=== PATIENT | female | born 1980 | race Caucasian/White ===

== ENCOUNTER → 2016-09-30 | Outpatient (CLI) | payer OTHER ==
[~2016-09-30] MED LIST: ACET-1256 PO; AMPH10TA2 PO; FLUC100T4 PO; IBUP-103 PO; METR500T PO; PRENTAB26 PO; VALA500T60 PO
[2016-09-30 10:49] LABS: THYROID STIMULATING HORMONE 2.02 uIu/ml (0.300-4.500)
== END | disposition home or self-care (01) ==
LOC: C.LAB 09:33
PROVIDERS: ATTEND Family Medicine
DX: E66.01 Morbid (severe) obesity due to excess calories (principal)

== ENCOUNTER → 2016-10-08 | Outpatient (CLI) | payer OTHER ==
--- NOTE | 2016-10-08 07:46 | DIAGNOSTIC IMAGING REPORT ---
LEFT FOOT ULTRASOUND CLINICAL HISTORY: Left foot palpable abnormality. COMPARISON STUDY: None. FINDINGS: Within the dorsal/lateral aspect of the left foot there is a subcutaneous tubular shaped slightly complex hypoechoic structure. This measures 2.9 x 0.3 cm and is located within the subcutaneous soft tissues. There is no associated color flow within this lesion. IMPRESSION: A 2.9 x 0.3 cm slightly complex tubular structure within the subcutaneous soft tissues of the dorsal/lateral aspect of the left foot. This appears to represent a thrombosed superficial vein. However, a cystic lesion could also have a similar appearance. Clinical follow-up is recommended to ensure resolution. Electronically signed by: Asad Manrique M.D. 10/08/2016 7:44 AM Dictated Date/Time: 10/08/2016 7:42 AM
== END | disposition home or self-care (01) ==
LOC: C.ULTR 07:06
PROVIDERS: ATTEND Physician Assistant
DX: R22.42 Localized swelling, mass and lump, left lower limb (principal)

== ENCOUNTER → 2017-01-07 | Outpatient (CLI) | payer OTHER | END | disposition home or self-care (01) | LOC: C.PAPS 13:21 | PROVIDERS: ATTEND Obstetrics & Gynecology | DX: Z01.419 Encounter for gynecological examination (general) (routine) without abnormal findings (principal) ==

== ENCOUNTER → 2017-01-07 | Outpatient (CLI) | payer OTHER | END | disposition home or self-care (01) | LOC: C.LAB1850 11:45 | PROVIDERS: ATTEND Obstetrics & Gynecology | DX: Z11.3 Encounter for screening for infections with a predominantly sexual mode of transmission (principal) ==

== ENCOUNTER → 2017-01-07 | Outpatient (CLI) | payer OTHER ==
[2017-01-11 13:07] LABS: CHLAMYDIA TRACH RNA*** NOT DETECTED (NOT DETECTED); GC (NEIS GONORRHOEAE)RNA** NOT DETECTED (NOT DETECTED)
== END | disposition home or self-care (01) ==
LOC: C.LABSPEC 13:34
PROVIDERS: ATTEND Obstetrics & Gynecology
DX: Z11.3 Encounter for screening for infections with a predominantly sexual mode of transmission (principal)

== ENCOUNTER → 2017-02-27 | Outpatient (CLI) | payer OTHER | END | disposition home or self-care (01) | LOC: C.PATHSPEC 15:45 | PROVIDERS: ATTEND Obstetrics & Gynecology | DX: R87.810 Cervical high risk human papillomavirus (HPV) DNA test positive (principal); N87.1 Moderate cervical dysplasia ==

== ENCOUNTER → 2017-05-14 | Outpatient (CLI) | payer OTHER | END | disposition home or self-care (01) | LOC: C.PATHSPEC 17:23 | PROVIDERS: ATTEND Obstetrics & Gynecology | DX: R87.810 Cervical high risk human papillomavirus (HPV) DNA test positive (principal); D06.0 Carcinoma in situ of endocervix ==

== ENCOUNTER → 2017-06-30 | Outpatient (CLI) | payer OTHER ==
[~2017-06-30] MED LIST changes: +ESOM20CA PO; +NAPR1TAB9 PO; +OXYC-57 PO
--- NOTE | 2017-06-30 09:06 | DIAGNOSTIC IMAGING REPORT ---
R LOWER EXT JOINT WITHOUT CLINICAL HISTORY: 37 years-old Female presenting with RT KNEE PAIN. TECHNIQUE: Multisequence, multiplanar MR imaging of the right knee was performed without the use of intravenous contrast. IV contrast: None. COMPARISON: 02/01/2016. FINDINGS: Localizer images: Unremarkable. Bony edema and cystic change noted in the tibial plateau anterior and subjacent to the insertion of the posterior cruciate ligament, slightly progressed from prior exam. No other sites of bony edema or cystic change. Articular cartilage fraying and irregularity in the mid to posterior weightbearing surface of the lateral femoral condyle. Minimal irregularity of mid weightbearing articular cartilage of the lateral tibial plateau. Irregularity of the anterior weightbearing articular cartilage of the medial femoral condyle. Minimal fissuring and increased signal intensity of the median prominence articular cartilage of the patella. Trochlear cartilage grossly preserved. Focus of susceptibility artifact along the anterior weightbearing portion of the medial femoral condyle could suggest postsurgical change. Medial meniscus intact. Lateral meniscus demonstrates increased signal intensity and blunting of the anterior horn with a horizontally oriented increased signal intensity in the body, which becomes vertically longitudinally oriented in the posterior horn. This is consistent with a complex tear and has advanced since the prior exam. Meniscocapsular ligaments of the lateral meniscus may not be intact. Medial meniscocapsular ligaments intact. Quadriceps and patellar tendons intact. Anterior and posterior cruciate ligaments intact. Medial collateral ligament intact. Lateral collateral ligament complex demonstrates increased signal intensity of the fibular collateral ligament with intact fibers. Biceps femoris tendon and iliotibial band intact. Slight increased signal intensity of the insertional fibers of the popliteus tendon suggests tendinosis or partial tear. Small knee joint effusion. No popliteal cyst. Normal muscle bulk and muscle signal intensity. Infrapatellar subcutaneous edema and laminar fluid. IMPRESSION: 1. Bony edema and cystic change subjacent to the insertion of the posterior cruciate ligament could suggest prior injury and degeneration though the ligament remains intact. 2. Complex tear of the lateral meniscus, which has progressed since the prior exam now involving the anterior horn, body, and posterior horn. Lateral meniscal capsular ligaments or possibly disrupted. 3. Degenerative change of the fibular collateral ligament. Degenerative change versus partial tear of the popliteus tendon at the insertional fibers. 4. Multifocal articular cartilage injury as above affecting the lateral compartments of the greatest degree. 5. Superficial infrapatellar bursitis. Electronically signed by: Dejan Rios M.D. 06/30/2017 9:05 AM Dictated Date/Time: 06/30/2017 8:55 AM
== END | disposition home or self-care (01) ==
LOC: C.MRI 07:33
PROVIDERS: ATTEND Orthopaedic Surgery
DX: S83.281A Other tear of lateral meniscus, current injury, right knee, initial encounter (principal); M70.51 Other bursitis of knee, right knee; X58.XXXA Exposure to other specified factors, initial encounter

== ENCOUNTER 2017-08-21 07:30 | Day surgery (SDC) | payer OTHER ==
--- NOTE | 2017-07-30 11:19 | HISTORY & PHYSICAL EXAMINATION ---
DATE OF ADMISSION: 08/21/2017 SUBJECTIVE CHIEF COMPLAINT: Right knee pain. HISTORY OF PRESENT ILLNESS: The patient is a 37-year-old female that presented with right knee pain. She states that the symptoms have occurred over a period of time. She denies any type of injury. She describes the pain as aching and sharp and moderate. She previously had arthroscopic surgery on her right knee for the meniscus tear. PAST MEDICAL HISTORY: Significant for GERD. PAST SURGICAL HISTORY: She had a right knee PLM, cholecystectomy, LEEP procedure and a tubal ligation. SOCIAL HISTORY: She denies alcohol use. She denies smoking or tobacco use. She denies IV or illegal drug use. FAMILY HISTORY: Noncontributory. ALLERGIES: ADHESIVES, WHICH SHE GETS BLISTERS. MEDICATIONS: Adderall 15 mg daily and 10 mg daily and Nexium. REVIEW OF SYSTEMS: She denies headaches, fevers, chills, double vision, blurry vision, sore throat, cough, chest pain, nausea, vomiting, diarrhea, constipation, numbness, tingling, tired, urinary difficulties, thoughts to harm herself or harm others or depression. She is positive for right knee joint pain. OBJECTIVE: GENERAL APPEARANCE: The patient is a 37-year-old female sitting in no acute distress. She is well-dressed, well-nourished. VITAL SIGNS: She is 5 feet 6 inches tall, 268 pounds. HEENT: Normocephalic, atraumatic. Extraocular movements are intact. Mucosa was moist. No septal deviation. NECK: Supple with no lymphadenopathy, no thyromegaly. HEART: Regular rate and rhythm with no murmurs or gallops. LUNGS: Clear to auscultation. No wheezing or rhonchi. ABDOMEN: Soft, nontender, nondistended. Normal bowel sounds, no hepatosplenomegaly. EXTREMITIES: Paying particular attention to the right knee, she has lateral joint line tenderness, positive Zurdo's. Her ligaments are intact. Strength and range of motion are within normal limits. NEUROLOGIC: Cranial nerves II-XII were intact. Pulses were compared bilaterally and were equal. IMAGING: MRI of her right knee demonstrated tear of the posterior horn of the lateral meniscus. IMPRESSION: Right knee lateral meniscus tear. PLAN: The patient is scheduled for a right knee partial lateral meniscectomy. Risks and benefits, and alternatives to surgery were discussed and included but not limited to infection, DVT, pain, stiffness, need for revision surgery, failure to relieve her symptoms, progression of arthritis, damage to blood vessels, damage to nerves, and risks of anesthesia and were all discussed with the patient and she wishes to proceed. All questions were answered to her satisfaction. No DVT prophylaxis is needed and she will be discharged home with self-care. CAMILLA
[2017-07-31 15:50] VITALS: BMI 42.0
[~2017-08-21] VITALS: Ht 167.6 cm; Wt 118.2 kg
[~2017-08-21 07:30] MED LIST changes: +CEFAZOLIN 2000MG IV PUSH 15 ML IV SCH; -FLUC100T4 PO; +LACTATED RINGER'S 1000ML 1,000 ML IV SCH; -METR500T PO; -OXYC-57 PO; -PRENTAB26 PO; -VALA500T60 PO
[2017-08-21 07:55] VITALS: BP 139/94; PULSE 89; TEMP 36.6; O2SAT 96; Ht 167.6 cm; Wt 118.2 kg
--- NOTE | 2017-08-21 10:28 | History & Physical Bridge Note ---
H&P Re-Evaluation Bridge Note: I have examined the patient, reviewed the History & Physical and in the interval since the performance of the History & Physical I have noted the following changes of clinical significance: No changes noted
[2017-08-21] MEDS ORDERED: BUPIVACAINE 0.5 % 5 MG/1 ML MPF 30ML VIAL ONE (11:19)
[2017-08-21] MEDS ORDERED: LIDOCAINE/EPINEPHRINE 1% 20 ML VIAL ONE (11:19)
[2017-08-21] MEDS ORDERED: EpINEphrine HCL INJ 1 MG/ML 1ML SYRINGE ONE ×2 (11:20→11:24)
[2017-08-21] MEDS ORDERED: LIDOCAINE HCL 2% 2 ML VIAL (20MG/ML) ONE (11:27)
[2017-08-21] MEDS ORDERED: FENTANYL CITRATE INJ 50 MCG/1 ML 2 ML VIAL ONE (11:27)
[2017-08-21] MEDS ORDERED: MIDAZOLAM HCL 1 MG/ML 2ML VIAL ONE (11:27)
[2017-08-21] MEDS ORDERED: PROPOFOL IV EMULSION 10 MG/ML 20 ML VIAL IV ONE (11:27)
[2017-08-21] MEDS ORDERED: DEXAMETHASONE SOD INJ 4 MG/ML VIAL ONE (11:29)
[2017-08-21] MEDS ORDERED: ONDANSETRON INJ 2 MG/ML 2 ML VIAL ONE (11:29)
[2017-08-21] MEDS ORDERED: MEPERIDINE HCL 25 MG/ML CARP IV PRN (11:30)
[2017-08-21] MEDS ORDERED: NALOXONE HCL 0.4 MG/1 ML VIAL/CARP IV PRN (11:30)
[2017-08-21] MEDS ORDERED: ONDANSETRON INJ 2 MG/ML 2 ML VIAL IV PRN ×2 (11:30→12:00)
[2017-08-21] MEDS ORDERED: ATROPINE SULFATE 0.1 MG/ML 5ML SYR IV PRN (11:30)
[2017-08-21] MEDS ORDERED: LABETALOL HCL IV 5 MG/ML 20ML IV PRN (11:30)
[2017-08-21] MEDS ORDERED: FLUMAZENIL 0.1 MG/1 ML 10 ML VIAL IV PRN (11:30)
[2017-08-21] MEDS ORDERED: EpHEDrine SULFATE INJ 50 MG/ML AMP IV PRN (11:30)
[2017-08-21] MEDS ORDERED: PHENYLEPHRINE 100MCG/ML 5ML SYR IV PRN (11:30)
[2017-08-21] MEDS ORDERED: D5W AND 1/2NSS + 20MEQ KCL 1,000 ML IV SCH (11:47)
[2017-08-21] MEDS ORDERED: OXYC-57 PO (11:51)
--- NOTE | 2017-08-21 11:54 | Discharge Instructions ---
Discharge Instructions Date of Service Aug 21, 2017. Admission Reason for Admission: Right Knee Other Medial Meniscus Tear -Current Inj Discharge Discharge Diagnosis / Problem: S/P Right knee PMM Discharge Goals Goal(s): Decrease discomfort, Improve function Activity Recommendations Activity Limitations: per Instructions/Follow-up section . Instructions / Follow-Up Instructions / Follow-Up ACTIVITY RECOMMENDATIONS: * You may walk on the leg with or without crutches as comfort permits. * Bending of the knee should start at once. * Do not shower for 48 hours following surgery. SPECIAL CARE INSTRUCTIONS: * You may cleanse the skin adjacent to the small wounds with soap and water at the time of the first dressing change. * The application of an ice bag to the front and sides of the knee will decrease swelling and discomfort for the first 48 hours. * The small incisions may be sore and develop bruising. This bruising does not require any special care. SPECIAL PRECAUTIONS: * If you experience unusual pain unrelieved by prescriptions, temperature elevation (100 degrees F. or above) or progressive swelling or bleeding, you should contact our office at for further evaluation. * You may have been prescribed pain medication. If you experience nausea and/or fine skin rash, discontinue this medication and contact our office at for an alternate medication. DRESSING: * Dressing should be comfortable and absorb any leakage of fluid and/or blood. * The dressing may become moist or bloodstained. * Dressing may be removed 48 hours after surgery and bandaids placed over the small surgical incisions. If can be removed sooner if it becomes very soiled or loose. * Bandaids may be used over next several days as needed and can be discontinued when there is not further drainage from the wounds. FOLLOW UP VISIT: If appointment is not already scheduled: Please call [facility] [place] to make a follow-up appointment for 10 -14 days after your surgery at . Current Hospital Diet Patient's current hospital diet: Regular Diet Discharge Diet Recommended Diet: Regular Diet Pending Studies Studies pending at discharge: no Medical Emergencies . Who to Call and When: Medical Emergencies: If at any time you feel your situation is an emergency, please call 911 immediately. . Non-Emergent Contact Non-Emergency issues call your: Surgeon Call Non-Emergent contact if: temperature is above 101.5, your pain is worsening, wound has increased drainage, wound has increased redness . "Provider Documentation" section prepared by Dioni Brito. . VTE Core Measure Inpt VTE Proph given/why not?: Treatment not indicated [place] Drug Monitoring Program Search Results: patient reviewed within database, no issues identified
[2017-08-21] MEDS ORDERED: ACETAMINOPHEN 325 MG TAB PO PRN (12:00)
[2017-08-21] MEDS ORDERED: OXYCODONE/ACETAMINOPHEN 5-325 TAB PO PRN ×2 (12:00)
--- NOTE | 2017-08-21 12:19 | [facility] Operative Report ---
Operative Report Operative Date Aug 21, 2017. Pre-Operative Diagnosis Right knee lateral meniscus tear Post-Operative Diagnosis Right knee lateral meniscus tear, loose bodies, chondromalasia of lateral femoral condyle Procedure(s) Performed Right Knee Arthroscopy, partial Lateral Menisectomy, removal of loose bodies, chondroplasty of lateral femoral condyle Surgeon Dr. Cisneros [employer] Officer Surgeon(s) none Estimated Blood Loss 1 cc Specimens none, as per surgeon Drains None Anesthesia Type General Complication(s) none Disposition Recovery Room / PACU Indications The patient is a 37-year-old female who had previously had a total lateral meniscus in this knee several years ago. She sustained a new episode had increasing lateral knee pain. MRI demonstrated a new tear of the lateral meniscus. She wishes to proceed with arthroscopy. Description of Procedure MRI demonstrated a complex tear of the posterior horn of the lateral meniscus. We discussed various treatment measures. The patient wished to proceed with arthroscopic partial lateral meniscectomy. Risks, benefits and alternatives to surgery including, but not limited to, infection, DVT, pain, stiffness, need for revision surgery, failure to relieve all symptoms, damage to blood vessels, damage to nerves, risk of the anesthesia were discussed with the patient and they wished to proceed. The patient was identified. Laterality was confirmed and marked. The patient received a preoperative antibiotic. They were transferred to the operating room and placed in supine position and induced into general endotracheal anesthesia per the anesthesia staff. A well-padded tourniquet was placed on the thigh and the limb was prepped and draped in the usual standard manner with ChloraPrep. The limb was exsanguinated and the tourniquet was inflated. I made a standard anterolateral viewing portal made through a stab incision and bluntly entered the suprapatellar pouch. Then under spinal needle localization I established an anteromedial portal. There was grade 1 cartilage of the patella. There was grade 0 cartilage of the trochlea. There was grade 0 cartilage of the medial femoral condyle. There was grade 0 cartilage of the medial tibial plateau. The medial meniscus was normal. The ACL and PCL were probed and were normal. There was a complex tear of the posterior horn of the lateral meniscus the meniscus removed. This was debrided back to a stable base utilizing combination of the shaver as well as meniscal biter. There was also a tear of the anterior horn of the lateral meniscus again this was debrided using combination of shaver and meniscus biter. There was grade 3 cartilage of the lateral femoral condyle.The unstable chondral flaps were debrided back to stable base utilizing a shaver. There was grade 2 cartilage of the lateral tibial plateau. There were several cartilaginous loose bodies within the lateral gutter largest measuring 5 mm x 5 mm. All of the instrumentation was removed from the knee. The portal sites were closed with nylon. A sterile dressing was applied and the tourniquet was released. All needle and sponge counts were correct at the end of the procedure. The patient was transferred to the PACU in stable condition without apparent complication. I attest to the content of the Intraoperative Record and any orders documented therein. Any exceptions are noted below.
[2017-08-21] MEDS: FENTANYL CITRATE INJ 50 MCG/1 ML 2 ML VIAL IV PRN ×4 (12:33→12:48)
[2017-08-21] MEDS: HYDROmorphone INJ 2 MG/ML SYR/VIAL IV PRN ×2 (12:50→13:00)
--- NOTE | 2017-08-21 13:28 | Anesthesiology Progress Note ---
Anesthesia Post Op Note Date & Time Aug 21, 2017 at 13:27 Vital Signs Pain Intensity: 3 Vital Signs Past 12 Hours Date Time Temp Pulse Resp B/P (MAP) Pulse Ox O2 Delivery O2 Flow Rate FiO2 08/21/17 13:15 37.3 69 16 134/83 99 Room Air 08/21/17 13:05 66 16 128/85 95 Room Air 08/21/17 12:55 66 18 137/85 96 Room Air 08/21/17 12:45 69 18 137/83 99 Room Air 08/21/17 12:35 75 18 138/85 100 Oxymask 10 08/21/17 12:29 36.4 84 18 141/84 92 Room Air 08/21/17 07:55 36.6 89 20 139/94 (109) 96 Room Air Notes Mental Status: alert / awake / arousable, participated in evaluation Pt Amnestic to Procedure: Yes Nausea / Vomiting: adequately controlled Pain: adequately controlled Airway Patency, RR, SpO2: stable & adequate BP & HR: stable & adequate Hydration State: stable & adequate Anesthetic Complications: no major complications apparent
[2017-08-21 13:29] VITALS: BP 128/73; PULSE 67; TEMP 36.6; O2SAT 99
[2017-08-21 13:59] VITALS: BP 124/73; PULSE 92; TEMP 36.5; O2SAT 96
== END 2017-08-21 14:15 | disposition home or self-care (01) ==
LOC: C.ACU 07:30
PROVIDERS: ATTEND Orthopaedic Surgery
DX: M23.251 Derangement of posterior horn of lateral meniscus due to old tear or injury, right knee (principal); K21.9 Gastro-esophageal reflux disease without esophagitis

== ENCOUNTER → 2018-01-22 | Outpatient (CLI) | payer OTHER ==
[~2018-01-22] MED LIST changes: -ACET-1256 PO; -CEFAZOLIN 2000MG IV PUSH 15 ML IV SCH; -IBUP-103 PO; -LACTATED RINGER'S 1000ML 1,000 ML IV SCH; -NAPR1TAB9 PO; +OXYC-57 PO
[2018-01-22 17:29] LABS: BASO % 0.3 %; BASO ABS # 0.02 K/uL (0-0.2); EOS % 1.5 %; HEMATOCRIT 39.7 % (37-47); HEMOGLOBIN 13.3 g/dL (12.0-16.0); LYMPH % 26.6 %; LYMPH ABS # 1.76 K/uL (1.2-3.4); MEAN CELL VOLUME 91.7 fL (80-100); MEAN CORPUSCULAR HEMOGLOBIN 30.7 pg (25-34); MEAN CORPUSCULAR HGB CONC 33.5 g/dl (32-36); MEAN PLATELET VOLUME 9.7 fL (7.4-10.4); MONO % 4.5 %; NEUT % 67.1 %; NEUT ABS # 4.43 K/uL (1.4-6.5); PLATELET COUNT 348 K/uL (130-400); RED CELL DISTRIBUTION WIDTH CV 12.1 % (11.5-14.5); RED CELL DISTRIBUTION WIDTH SD 41.1 fL (36.4-46.3); WHITE BLOOD COUNT 6.61 K/uL (4.8-10.8)
[2018-01-22 17:48] LABS: ALBUMIN 3.9 gm/dl (3.4-5.0); BLOOD UREA NITROGEN 15 mg/dl (7-18); CALCIUM 9.1 mg/dl (8.5-10.1); CARBON DIOXIDE 28 mmol/L (21-32); CREATININE 0.83 mg/dl (0.60-1.20); GLUCOSE 85 mg/dl (70-99); PHOSPHORUS 2.9 mg/dl (2.5-4.9); POTASSIUM 4.2 mmol/L (3.5-5.1); SODIUM 139 mmol/L (136-145)
[2018-01-23 08:01] LABS: HEMOGLOBIN A1C 4.7 % (4.5-5.6)
== END | disposition home or self-care (01) ==
LOC: C.LAB 16:28
PROVIDERS: ATTEND Family Medicine
DX: M25.50 Pain in unspecified joint (principal); R63.5 Abnormal weight gain; Z13.1 Encounter for screening for diabetes mellitus

== ENCOUNTER → 2018-02-06 | Outpatient (CLI) | payer OTHER | END | disposition home or self-care (01) | LOC: C.LAB 07:11 | PROVIDERS: ATTEND Family Medicine | DX: Z13.220 Encounter for screening for lipoid disorders (principal); R63.5 Abnormal weight gain ==

== ENCOUNTER → 2018-02-12 | Outpatient (CLI) | payer OTHER ==
[2018-02-15 15:19] LABS: ANA SCREEN TC 249X NEGATIVE (NEGATIVE)
== END | disposition home or self-care (01) ==
LOC: C.LAB 07:28
PROVIDERS: ATTEND Physician Assistant
DX: M25.50 Pain in unspecified joint (principal)